=== PATIENT | female | born 1970 | race Caucasian/White ===

== ENCOUNTER → 2018-02-02 16:10 | Outpatient (CLI) | payer OTHER, SELFPAY ==
[2018-02-06 15:05] LABS: HPV Reflexed? NOT INDICATED
== END ==
PROVIDERS: Visit Provider Obstetrics & Gynecology
DX: Z12.4 Encounter for screening for malignant neoplasm of cervix (principal)
CPT/HCPCS: 88175; G0145

== ENCOUNTER 2018-04-17 05:22 | Emergency (ER) | payer OTHER, SELFPAY ==
[2018-04-17 05:24] VITALS: BP 110/85; PULSE 86; RESP 14; TEMP 36.6; O2SAT 96; BMI 33.1
[2018-04-17] MEDS: 0.9% Normal Saline 1,000 ML 1000 ML IV (05:49)
[2018-04-17] MEDS: Ketorolac 30 MG/ML Syringe IV (05:50)
[2018-04-17] MEDS: Ondansetron 4 MG/2 ML Vial IV (05:52)
[2018-04-17 06:01] LABS: Absolute Lymphocyte Count 2.45 X10^3/ul (0.83-4.51); Absolute Neutrophil Count 5.9 X10^3/uL (2.0-7.7); Basophil# 0.02 X10^3/uL; Basophil% 0.2 % (0-1); Eosinophil# 0.08 X10^3/uL; Eosinophils% 0.9 % (0-5); Hematocrit 43.8 % (37-47); Hemoglobin 14.6 g/dl (12.0-15.0); Lymphocyte # 2.45 X10^3/ul (4.0); Mean Corp Hgb Conc 33.3 g/gl (32-36); Mean Corpuscular Hgb 30.6 pg (27.0-32.0); Mean Corpuscular Volume 91.8 fL (81-99); Mean Platelet Vol. 9.5 fl (6.2-12.0); Monocyte% 6.6 % (0-10); Neutrophil # 5.92 X10^3/uL (2.7-7.7); Neutrophil % 65.2 % (47-70); Platelet Count 283 K/mm3 (150-450); RBC Distribution Width CV 12.3 % (11.6-14.6); RBC Distribution Width SD 41.3 fl (35.1-43.9); Red Blood Count 4.77 M/mm3 (4.2-5.4); White Blood Count 9.1 K/mm3 (4.4-11.0)
[2018-04-17 06:04] LABS: POSITIVE COUNT NO; POSITIVE DIFFERENTIAL NO; POSITIVE MORPHOLOGY NO
[2018-04-17 06:16] LABS: Anion Gap 6 (5-15); BUN 12 mg/dL (7-18); BUN/Creat Ratio 14.2 RATIO (10-20); Calcium,Total 8.5 mg/dL (8.5-10.1); Chloride 105 mmol/L (98-107); Creatinine, Serum 0.85 mg/dL (0.55-1.02); EST Glomerular Filtration Rate 77 mL/min (>60); Est Glom Filt Rate - Afr Amer 93 mL/min (>60); Estimated Creatinine Clearance 63.07 ml/min; Glucose 104 mg/dL (74-106); Sodium Level 140 mmol/L (136-145)
[2018-04-17 06:58] LABS: Mucous, Urine 0 SEEN /hpf (<or=2+); Red Blood Cells-Urine 0 SEEN /hpf (0-5)
[2018-04-17 07:00] LABS: Pregnancy, Serum, hCG Quali. NEGATIVE Negative (0-9 Nonpreg)
--- NOTE | 2018-04-17 07:02 | ED.VISSUMM ---
- ER Visit Summary Date of Service: 04/17/18 Chief Complaint: Nausea vomiting and diarrhea History of Present Illness: The patient is a 47 F who presents with nausea vomiting and diarrhea. This began about 5 hours prior to presentation. She reports about 5-6 episodes of nonbloody nonbilious emesis and 5-6 episodes of loose stools. No hematochezia. She does report that she just has not felt well for the past couple of days. No sick contacts with similar symptoms. She complains of some mild diffuse abdominal cramping but no abdominal pain. She also complains of a headache. Review of systems otherwise negative. No fevers chest pain shortness of breath. Physical Examination: Afebrile vitals are normal Patient resting comfortably no distress Moist mucous membranes Heart regular rate and rhythm Lungs are clear Abdomen soft nontender nondistended Alert Test Results: CBC BMP are normal and is negative. Urinalysis pending. Emergency Department Course and Treatment: Since history and examination are most just above a gastroenteritis. However given that she has had a few days of otherwise not feeling well we did obtain some screening laboratory studies which are normal. Patient feels much better after treatment with IV fluids Zofran and Toradol for her headache. Patient will be discharged home with a prescription for Zofran. The oncoming physician will check the urinalysis and if she does have UTI which I have low clinical suspicion for appropriate antibiotics will be prescribed. Treatment Plan: [] Disposition: Discharge Impression: Gastroenteritis This note was generated with [employer] dictation software. It may contain incorrect words, spelling, and punctuation that were not noted in review of the chart prior to signing ED Disposition - Plan for ED Patient: Chief Complaint: Nausea/Vomiting Referrals: Care Physician,No Primary [Primary Care Provider] -
[2018-04-17 07:03] LABS: Color, Urine Yellow (Yellow); Glucose, Dipstick Normal (Normal); Ketone-Dipstick Negative (Negative); Leukocyte Esterase-Dipstick 100 /ul (Negative); Nitrite-Dipstick Negative (Negative); Occult Blood-Urine Negative /ul (Negative); Protein-Dipstick 15 mg/dl (Negative); Urine Bilirubin Dipstick Negative (Negative); Urine Clarity Sl. Cloudy (Clear); Urine Urobilinogen Normal (Normal)
--- NOTE | 2018-04-17 07:06 | ED.DEP ---
ED Disposition - Plan for ED Patient: Chief Complaint: Nausea/Vomiting Instructions: ED Gastroenteritis Viral Prescriptions: Ondansetron [Zofran Odt] 4 mg PO Q8H PRN PRN #4 tab PRN Reason: Nausea Referrals: Care Physician,No Primary [Primary Care Provider] -
[2018-04-17 07:08] LABS: Amorphous Sediment 2+; Bacteria RARE /hpf (None Seen); Squamous Epithelial Cells - UA 0-5 SEEN /hpf (5-10); White Blood Cells 0-5 SEEN /hpf (0-5)
--- NOTE | 2018-04-17 07:42 | ED.VISSUMM ---
- ER Visit Summary Date of Service: 04/17/18 Emergency Department Course and Treatment: The patient was checked out to me with urinalysis pending. This is returned. It shows leukocytes and rare bacteria. She is resting comfortably. Treatment Plan: Patient will be discharged with Zofran. Instructed to follow-up with her primary care physician in 1-2 days if not improving. Return to the emergency department for any worsening symptoms. Disposition: To home in improved and stable condition. Impression: 1. Vomiting/diarrhea. This note was generated with [employer] dictation software. It may contain incorrect words, spelling, and punctuation that were not noted in review of the chart prior to signing ED Disposition - Plan for ED Patient: Chief Complaint: Nausea/Vomiting Instructions: ED Gastroenteritis Viral Prescriptions: Ondansetron [Zofran Odt] 4 mg PO Q8H PRN PRN #4 tab PRN Reason: Nausea Referrals: Care Physician,No Primary [Primary Care Provider] -
[2018-04-17 07:51] VITALS: BP 112/76; PULSE 85; RESP 16; O2SAT 98
== END 2018-04-17 07:52 | disposition home or self-care (01) ==
PROVIDERS: Emergency Provider Emergency Medicine
DX: K52.9 Noninfective gastroenteritis and colitis, unspecified (principal); R51 Headache
CPT/HCPCS: 80048; 81001; 84703; 85025; 96361; 96374; 96375; 99283; J7030; A4216

== ENCOUNTER → 2018-07-27 07:05 | Outpatient (CLI) | payer OTHER, SELFPAY | PROVIDERS: Visit Provider Obstetrics & Gynecology | DX: Z12.31 Encounter for screening mammogram for malignant neoplasm of breast (principal) | CPT/HCPCS: 77063; 77067 ==

== ENCOUNTER → 2019-07-28 07:19 | Outpatient (CLI) | payer BC, SELFPAY ==
--- NOTE | 2019-07-28 07:21 | BI_ITS ---
MAMMOGRAPHY - BILATERAL SCREENING REASON FOR EXAM: Female, 48 years old. Routine annual screening examination. PERTINENT HISTORY: Non-contributory. TECHNIQUE: Digital bilateral breast alfred (3D mammographic acquisition) in the CC and MLO projections. 2-D mediolateral oblique (MLO) and craniocaudad (CC) views of both breasts were obtained. CAD: Full Field Digital Mammography with Computer Added Detection was performed. COMPARISON: Comparison is made with prior study July 27, 2018 and June 29, 2017. FINDINGS: Breast Composition: There are scattered areas of fibroglandular density. There are no dominant masses or suspicious calcifications. No other significant abnormalities are identified. There has been no significant change since the prior study. BI/SCREEN MAMM (CAD) W/ALFRED BILAT IMPRESSION: Stable bilateral screening mammogram. Yearly follow-up mammogram recommended. (A) ASSESSMENT CATEGORY: BIRADS Category 1: Negative. A letter regarding these results will be sent to the patient by the facility within 30 days. Approximately 10% of breast cancers are not detected by mammography. A normal mammogram should not delay biopsy of a clinically suspicious abnormality. [id number] Electronically Signed: David Mesa, at 8:43 EDT , Service support ,
== END ==
PROVIDERS: Referring Provider Obstetrics & Gynecology; Visit Provider Obstetrics & Gynecology
DX: Z12.31 Encounter for screening mammogram for malignant neoplasm of breast (principal)
CPT/HCPCS: 77063; 77067

== ENCOUNTER → 2020-05-13 16:17 | Outpatient (CLI) | payer BC, SELFPAY ==
[2020-05-13 18:15] LABS: Thyroid Stim Hormone (TSH) 2.27 uIU/mL (0.358-3.74)
[2020-05-20 05:31] LABS: HPV Reflexed? NOT INDICATED
== END ==
PROVIDERS: Visit Provider Obstetrics & Gynecology
DX: Z12.4 Encounter for screening for malignant neoplasm of cervix (principal); N92.6 Irregular menstruation, unspecified
CPT/HCPCS: 36415; 84443; 88175; G0145

== ENCOUNTER 2020-07-29 06:07 | Day surgery (SDC) | payer BC, SELFPAY ==
[2020-07-24 12:03] LABS: Prothrombin Time (Protime)PT. 12.4 SECONDS (11.7-14.9)
[2020-07-24 12:04] LABS: Partial Thromboplast Time 28.1 Seconds (24.1-36.2)
[2020-07-24 12:08] LABS: Hematocrit 44.9 % (37-47); Hemoglobin 14.6 g/dL (12.0-15.0); Mean Corp Hgb Conc 32.5 g/dL (32-36); Mean Corpuscular Hgb 30.6 pg (27.0-32.0); Mean Corpuscular Volume 94.1 fL (81-99); Mean Platelet Vol. 10.2 fl (6.2-12.0); Platelet Count 348 K/mm3 (150-450); RBC Distribution Width CV 12.3 % (11.6-14.6); RBC Distribution Width SD 42.1 fl (35.1-43.9); Red Blood Count 4.77 M/mm3 (4.2-5.4); White Blood Count 9.1 K/mm3 (4.4-11.0)
[2020-07-24 12:22] LABS: Creatinine, Serum 0.84 mg/dL (0.55-1.02); EST Glomerular Filtration Rate 77 mL/min (>60); Est Glom Filt Rate - Afr Amer 94 mL/min (>60)
--- NOTE | 2020-07-26 10:39 | PCM.HP.BLA ---
History and Physical Date of Admission: 07/29/20 Surgical History and Physical Jasmin Rosas, a 49 year old female 2 0 2 0 2, presents for [facility]BS on June at 7:30. -- Menorrhagia, Submucous Fibroids -- Heavy bleeding with pressure feeling in low abdomen area. Heavy menses which began years ago. Jasmin claims it started gradually It occurs with every cycle. Severity is severe and worsening; Associated signs and symptoms are extremely heavy menses for several days monthly and then often has spotting and bleeding 2-3 weeks later. Additional comments are: U/S shows multiple submucous fibroids--UTERUS: 8.1 x 4.9 x 3.4cm and appears heterogenous. 2 submucousal fibroids seen (anterior) 2.4 x 2.3 x 1.9cm and 1.4 x 1.2 x 1.2cm; recent TSH normal. MEDICATIONS HISTORY: Patient is also takin. multivitamin tablet, chewable ALLERGIES: Pcn, Hallucinations, Seafood, Gluten free, Gastric upset, Penicillins, Hallucinations, Shellfish Derived, Constriction in throat (feeling of choking), Gluten and Intolerance-diarrhea Infections - Chicken pox Illnesses - Celiac Disease(Gluten Intolerate) Accidents - no injuries of consequence Hospitalizations - Childbirth and see surgery Review of Systems: GENERAL - Denies fever, or chills SKIN - Denies skin changes EYES - Denies visual changes EARS - Denies difficulty hearing NOSE - Denies nasal congestion or bleeding MOUTH - Denies sore throat or difficulty swallowing NECK - Denies pain or swelling RESPIRATORY - Denies shortness of breath or wheezing CARDIOVASCULAR - Denies palpitations or chest pain GASTROINTESTINAL - Denies nausea, vomiting, diarrhea, constipation GENITOURINARY - Denies dysuria, frequency of urination, incontinence of urine MUSCULOSKELETAL - Denies joint or muscle pain NEUROLOGICAL - Denies localized numbness or weakness PSYCHIATRIC - Denies depression or anxiety ENDOCRINE - Denies heat or cold intolerance, weight loss or gain HEMATO-IMMUNOLOGIC - Denies excessive bleeding with cuts SOCIAL HISTORY: Alcohol Use - drinks occasionally Smoking - denies smoking Diet - Gluten Free Diet Lifestyle - high stress lifestyle and Exercise - very active, walking Seat Belt Use - always Employer - [employer] Job Description - OFFICE [employer] Illicit Drug Use - None Sexual Activity - Residence - owns a home and lives with Place of - [place] Hours Worked - 47 Spouse-Sig Other Name - ZAMZAM ROSAS Spouse-Sig Other Occupation - Heavy Equipment Sales Associate Children Name(s) - ANASTACIO, GARRICK Control - Prior Tubal FAMILY HISTORY: Family history of DM I and Heart Disease. Mother: Hypertension. Father: Hypertension. PAST PREGNANCIES: Total Pregnancies - 4; Full Term Pregnancies - 2; Premature - 0; Abortions, Induced - 0; Abortions, Spontaneous - 2; Ectopics - 0; Multiple Births - 0; Living Children - 2 SURGICAL HISTORY: 1. , 1996 2. 11/14/2002 Tubal ; Zamzam Glass M.D. - Elective 3. NASAL SURG . 01/16/2011 [facility] ; Zamzam Glass M.D. PHYSICAL EXAM BP- 128/78 Sitting, Right arm, regular cuff Weight- 178.83191 lbs Height- 60.75 inch BMI:33.98 CONSTITUTIONAL - NAD, well nourished, and well developed SKIN - No rash, lesions, or ulcers HEENT - Normocephalic, PERRLA, EOMI NECK - No nodes, no nuchal rigidity and thyroid normal size and texture LYMPH NODES - Palpation of lymph nodes in neck and groins within normal limits LUNGS - CTA x2 without wheezes, crackles or rales CARDIAC - Regular rate and rhythm without rubs, murmurs, or gallops BREAST - No dominant masses, no tenderness, no axillary adenopathy, no nipple discharge, no skin changes ABDOMEN - Without hepatosplenomegaly, distention, masses, rebound, or guarding; normal bowel sounds; no hernias EXTREMITIES - No edema or calf tenderness NEUROLOGICAL - Cranial nerves II-XII grossly intact PSYCHIATRIC - A and O to time, place, person, mood and affect External Genital Vagina - non-tender without lesions Urethra/Urethral Meatus - non-tender Bladder - non-tender Vagina - vaginal wang are pink and moist without loss of rugae and no evidence of atropy Cervix - without cervical motion tenderness and has normal size and features without evident lesions Uterus - 5-6 cm in size, mobile and nontender Adnexa - clear without masses or tenderness ASSESSMENT/PLAN: 1. Premenopause Menorrhagia and Submucous Leiomyoma Very symptomatic and bothersome. Discussed options for treatment including OCPs, ablation (both not optimal), expectant management, or proceeding with hysterectomy. Pt desires proceeding with hysterectomy. Plan RAVH/BS as pt had prior . Discussed RBAs and all questions answered.
[2020-07-29] VITALS (10 sets, daily range): BP systolic 93–136; BP diastolic 50–85; PULSE 63–95; RESP 16–18; TEMP 36.1–37; O2SAT 94–100; BMI 33.1
--- NOTE | 2020-07-29 | HYST_PTH ---
PATIENT: INNA BE LOC: [facility] [place] U#:[id number] AGE/SX: 49/F ROOM: RE07/29/[address]: Dr. Lee Glass MD : 1970 BED: DIS: 07/30/2020 SPEC #: [id number] RECD: 07/29/20 10:57 STATUS: TERESE NEIL #: [id number] KRISTIE: 07/29/20 00:[address]: Lee Glass DEPT: SURGICAL PATHOLOGY RECD BY: Ugo Verdugo ENTERED: 07/29/20 10:57 SP TYPE: HYSTERECT OT DR: No Primary Care Phys Tissues: Uterus, NOS Procedures: Surgery Specimen Level V HEADER OPERATION: Lap robotic hysterectomy, bilateral salpingectomy PRE-OP DIAGNOSIS: Premenopause menorrhagia and submucous leiomyoma TISSUE SUBMITTED: Uterus, bilateral fallopian tubes MICROSCOPIC DIAGNOSIS Uterus and bilateral fallopian tubes, hysterectomy and bilateral salpingectomy: Cervix - mild chronic inflammation. Endometrium - secretory endometrium. Myometrium - intramural and submucosal leiomyomas (largest measuring 1.3 cm in greatest dimension). - Adenomyosis. Right fallopian tube - no pathologic diagnosis. Left fallopian tube - no pathologic diagnosis. Bilateral paratubal cysts. 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 See comment. SJ:rg 07/30/20 COMMENT Immunohistochemistry ([id number]) supports the above diagnosis. Case has been reviewed in consultation with Dr. Rios who concurs with the above diagnosis. IDC:AM MICROSCOPIC DESCRIPTION Slides are reviewed. GROSS DESCRIPTION Received in fixative is one container labeled with the patient's name and designated uterus. The specimen consists of a uterus with attached cervix measuring 8.5 x 6 x 4 cm and weighs 95 gm. The ectocervix is unremarkable. The cervical os is oval in contour. The attached right fallopian tube measures 5 cm in length and 0.5 cm diameter. A paratubal cyst measures 1.2 cm and contains clear fluid. The left fallopian tube is similar in appearance and is detached and measures 5.5 cm in length and 0.4 cm in average diameter. The endocervical canal measures 3.3 cm in length and is grossly unremarkable. The triangular endometrial cavity measures 4 x 3.5 cm. The velvety, light boyle endometrium measures up to 0.2 cm in thickness. The anterior endometrial surface contains a smooth, glistening, pink-boyle polyp measuring 1.2 x 0.8 cm. The myometrium measures 2.2 cm in average thickness and is grossly consistent with adenomyosis. The myometrium also contains two rubbery white nodules resembling leiomyomas ranging in size from 0.5 and 1.3 cm. Crime Scene Photographer sections are submitted in ten cassettes as follows: 1 - anterior cervix, 2 - posterior cervix, 3 - endometrial polyp, 4 & 5 - anterior endometrium (cassette 4 contains small leiomyoma), 6 & 7 - posterior myometrium, 8 - posterior myometrial mass, 9??right fallopian tube and paratubal cyst, 10 - left fallopian tube. / AM:michaela 07/29/20 TC:1 CPT: 81436
--- NOTE | 2020-07-29 | IMM_PTH ---
PATIENT: INNA BE LOC: [facility] [place] U#:[id number] AGE/SX: 49/F ROOM: RE07/29/[address]: Dr. Lee Glass MD : 1970 BED: DIS: 07/30/2020 SPEC #: [id number] RECD: 07/30/20 14:18 STATUS: TERESE REQ #: [id number] KRISTIE: 07/29/20 00:[address]: Lee Glass DEPT: IMMUNOHISTOCHEMISTRY RECD BY: So Phillip ENTERED: 07/30/20 14:19 SP TYPE: IMMUNO OTHR DR: No Primary Care Phys Tissues: Uterus, NOS Procedures: MART1 (add) Vimentin (initial) S-100 (add) PHYSICIAN & INSTITUTION [place] [address] SPECIMEN INFORMATION: Tissue Source: Uterus Clinical Info: Premenopause menorrhagia, submucous leiomyoma Specimen Number: [id number] #10 CPT code: 21999, 49681 x2 METHODOLOGY: Deparaffinized sections of prefer/formalin-fixed tissue or PAP/DQ stained slides are incubated with monoclonal/polyclonal antibodies/oligonucleotide probes. Localization is made via biotin free immunoperoxidase method. Appropriate controls are performed and reacted as expected. Results on target cell population are indicated in the following table: RESULTS: ANTIBODY / CLONE RESULT Block 10 Vimentin (V9) positive S-100 (4C4.9) negative MART-1 (A-103) negative These tests were developed and their performance characteristics determined by [facility]. They may not have been cleared or approved by the U.S. Food and Drug Administration. The FDA has determined that such clearance or approval is not necessary. The above immunohistochemical/dualISH markers are ordered and reviewed by the Pathologist. 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 SJ:michaela 07/31/20 Case has been reviewed in consultation with Dr. Rios who concurs with the above diagnosis. IDC:AM
[2020-07-29] MEDS: Lactated Ringers 1,000 ML 100 ML IV ×2 (07:04→07:08)
--- NOTE | 2020-07-29 07:47 | PCM.DC.VHY ---
Discharge Diet: No Restrictions Discharge Activity: Return to Normal Activity, May Not Drive - while taking narcotic pain medications., May Shower, May Take a Tub Bath May resume sexual activity in: 6-8 weeks Call your doctor if your incision/area has: Continuous Slow Oozing, Sudden Increased Bleeding, Increased Pain/ Swelling, Increased Redness, Foul Smelling Discharge Call your doctor if you observe: Fever of 101 or Higher, Inability to urinate, Inability to have a bowel movement, Using more than one pad per hour Allergies/Adverse Reactions: Allergies bee venom protein (honey bee) Allergy (Verified 07/29/20 06:43) Anaphylaxis gluten Allergy (Verified 07/29/20 06:43) Diarrhea Penicillins Allergy (Verified 07/29/20 06:43) Other HALLUCINATIONS shellfish derived Allergy (Verified 07/29/20 06:43) Food Allergy Medications to take at Discharge Ascorbic Acid [Vitamin C] 1,000 mg PO DAILY 07/18/20 Cholecalciferol (VIT D3) [Vitamin D] 1,000 unit PO DAILY 07/18/20 Cyanocobalamin (Vitamin B-12) [Vitamin B12] 2,500 mcg PO DAILY 07/18/20 Loratadine [Claritin] 10 mg PO DAILY 07/18/20 Multivitamin [Daily Multiple Vitamin] 1 ea PO DAILY 07/18/20 Prasterone (Dhea) [Dhea] 25 mg PO DAILY 07/18/20 Pyridoxine HCl [Vitamin B-6] 100 mg PO DAILY 07/18/20 Docusate Sodium [Colace] 100 mg PO BID 14 Days #60 cap 07/29/20 Oxycodone [Oxyir] 5 mg PO Q6H PRN PRN 7 Days #20 tab 07/29/20 The following prescriptions were given: Docusate Sodium [Colace] 100 mg PO BID 14 Days #60 cap Transmission Status: Sent to [facility] Oxycodone [Oxyir] 5 mg PO Q6H PRN PRN 7 Days #20 tab PRN Reason: Pain Score 4-10/10 Transmission Status: Received by [facility] Primary Care Physician: Care Physician,No Primary [Primary Care Provider] - Test Results: Test results from this visit will be discussed in further detail at your follow-up appointment, if applicable. Please Follow Up With: Lee Glass MD When: 2-3 weeks
--- NOTE | 2020-07-29 07:49 | PCM.OPRPT ---
<Chandu Cerrato - Last Filed: 07/29/20 07:49> Report of Operation Date of Procedure: 07/29/20 Pre-Operative Diagnosis: Menorrhagia, submucousal fibroids Post-Operative Diagnosis: Menorrhagia, submucousal fibroids Surgery/Procedure Performed:: Robotic assisted vaginal hysterectomy, bilateral salpingectomy Type of Anesthesia:: General - Admit VTE Documentation VTE Mechan Device Prophylaxis: SCD's VTE Pharm Prophylaxis ordered?: No <Lee Glass - Last Filed: 07/29/20 09:53> Report of Operation Description of Surgical Findings:: 10 cm uterus with normal-appearing fallopian tubes and ovaries. Evidence of prior tubal ligation with Filshie clips. Dense adhesions of bladder to anterior uterus from prior sections. Adhesions of omentum to anterior abdominal wall. painter and paperhanger apprentice: Chandu Cerrato painter and paperhanger apprentice: Ryley Dubon Type of Anesthesia:: General - Endotracheal Anesthesiologist: Noah Mullins Specimen's removed: Uterus and bilateral fallopian tubes Drains: Saldaña to straight drain Estimated Blood Loss (mL): Minimal Fluids Replaced: Crystalloid Description of Procedure: Surgeon: Lee Glass MD, FACOG Indication: This is a 49 year old patient who has been having problems with submucous fibroids and menorrhagia. Conservative measures have not been helpful. The patient has been counseled regarding the risks, benefits and alternatives of this procedure including the possibility of bleeding, infection, and injury to surrounding structures such as bowel bladder and all questions were answered. She understands that if BSO is needed that she will need to be on HRT for an indefinite period of time. Procedure: Pt taken to the operating room where, after induction of general anesthesia, the patient was prepped and draped in the usual sterile fashion and placed on a non-slip Huggy-u-vac device. Trendelenburg test was satisfactory. Bladder was drained of urine with a Saldaña catheter which was left in place. Anterior cervix grasped and cervix was dilated to about 3-4 mm. Uterus sounded to 9 cms. 0-Vicryl suture was placed at the 3:00 and 9:00 position of the cervix. A medium Advincula Photogrammetric Surveyor Uterine Manipulator was then placed in the uterus and attention was turned to the laparoscopic portion of the procedure. Ropivocaine 0.5% was injected approximately 2-3 cm superior to the umbilicus and an 8 mm robotic left side port was introduced directly with intraperitoneal placement confirmed with CO2 insufflation. 8 mm robotic camera and right side ports were introduced under direct visualization approximately with side ports introduced 11 cm lateral and 2 cm inferior to the umbilical port. A 5 mm left upper quadrant port was introduced and airseal insufflation with CO2 was started. The above findings were noted. Robot was docked without difficulty and attention turned to the robotic portion of the procedure. Approximately 20 cc of Ropivicaine was used. The omental adhesions were taken down with cautery and sharp dissection. Bilateral mesosalpinx were ligated with 35 ballard bipolar coagulation to the level of the round ligament. The posterior aspect of the cervix was identified and then opened for about 1 cm using 25 watt monopolar cautery identifying the uterine manipulating device which had been placed vaginally. Bladder flap was opened and divided to the level of the round ligaments using monopolar cautery. Progressive bites were then ligated on each side of the cervix with 35 ballard bipolar cautery to the uterine arteries. The anterior vaginal mucosa was entered and cervix circumscribed with monopolar cautery. Uterus and attached tubes were removed through the vagina. Vaginal cuff was closed first with 0-Vicryl Robinson stitches placed at each angle followed by closure of the mid-cuff with 0-Monocryl V-lock suture in two layers. Pelvis was copiously irrigated with saline and the right and left ureters were noted to peristalse. Robot was undocked and trocars were removed with as much gas as possible. Incisions were closed with 4-0 Monocryl subcuticular sutures and incisions covered with steri-strips. The patient tolerated the procedure well and was taken to the recovery room in satisfactory condition. Sponge, instruments and needle counts were all correct. There were no apparent complications of the surgery. Cefotan 2 gms IV was given prior to the procedure. Estimated Blood Loss: Minimal Specimen to Pathology: Uterus and bilateral fallopian tubes Grafts/Implants Used: None - Complications None - Admit VTE Documentation VTE Present on Admission: Yes VTE Mechan Device Prophylaxis: SCD's VTE Pharm Prophylaxis ordered?: Yes
[2020-07-29] MEDS: Ropivacaine 0.5% 30 ML Vial (10:00)
[2020-07-29] MEDS: Ketorolac 30 MG/ML Syringe IV ×3 (11:03→23:10)
[2020-07-29] MEDS: Dextrose 5%-Lactated Ringers 1,000 ML 125 ML IV (13:27)
[2020-07-29] MEDS: Enoxaparin 30 MG/0.3 ML Syringe SC (17:35)
[2020-07-29] MEDS: oxyCODONE 5 MG Tablet PO (19:42)
[2020-07-29] MEDS: Docusate Sodium 100 MG Capsule PO (23:40)
[2020-07-29] MEDS: 0.9% Saline Lock 10 ML Syringe IV (23:40)
[2020-07-30 03:54] VITALS: BP 96/57; PULSE 91; RESP 16; TEMP 36.3; O2SAT 97
[2020-07-30] MEDS: 0.9% Saline Lock 10 ML Syringe IV ×2 (03:55→09:43)
[2020-07-30] MEDS: Ketorolac 30 MG/ML Syringe IV ×2 (03:55→09:32)
[2020-07-30 06:05] LABS: Hematocrit 38.4 % (37-47); Hemoglobin 12.3 g/dL (12.0-15.0); Mean Corpuscular Hgb 30.2 pg (27.0-32.0); Mean Corpuscular Volume 94.3 fL (81-99); Mean Platelet Vol. 9.9 fl (6.2-12.0); Platelet Count 312 K/mm3 (150-450); RBC Distribution Width CV 12.7 % (11.6-14.6); RBC Distribution Width SD 43.9 fl (35.1-43.9); Red Blood Count 4.07 M/mm3 (4.2-5.4); White Blood Count 17.7 K/mm3 (4.4-11.0)
[2020-07-30 06:24] LABS: Creatinine, Serum 0.88 mg/dL (0.55-1.02); EST Glomerular Filtration Rate 73 mL/min (>60); Est Glom Filt Rate - Afr Amer 88 mL/min (>60); Estimated Creatinine Clearance 59.64 ml/min
[2020-07-30 07:33] VITALS: O2SAT 94
--- NOTE | 2020-07-30 08:40 | PN.OBGYN_ITS ---
Subjective: Patient without complaints. Tolerating diet well. Positive flatus. Saldaña catheter is out but has not voided on own yet. Minimal vaginal bleeding reported. Objective: Wounds are clean, dry, intact. Good urine output. Hemoglobin and creatinine okay. - Physical Exam Vitals/I&O's: Vital Signs Temp Pulse Resp BP Pulse Ox 97.4 F L 91 16 96/57 L 94 07/30/20 03:54 07/30/20 03:54 07/30/20 03:54 07/30/20 03:54 07/30/20 07:33 Oxygen Flow Rate (L/min) 3 Oxygen Delivery Method Room Air Weight: 179 lb 14.355 oz Body Mass Index (BMI) 33.1 Intake and Output for Last 24 Hours 07/28/20 07/29/20 07/30/20 23:59 23:59 23:59 Intake Total 4546.67 / 4546.67 400 / 400 Output Total 2575 / 2575 750 / 750 Balance 1971.67 / 1971.67 -350 / -350 Laboratory Results 07/30/20 05:20: WBC 17.7 H, RBC 4.07 L, Hgb 12.3, Hct 38.4, MCV 94.3, MCH 30.2, MCHC 32.0, RDW Std Deviation 43.9, RDW Coeff of Alcides 12.7, Plt Count 312, MPV 9.9 07/30/20 05:20: Creatinine 0.88, Estim Creat Clear Calc 59.64, Est GFR (MDRD) Af Amer 88, Est GFR (MDRD) Non-Af 73 Current Medications Acetaminophen (Tylenol) 1,000 mg PO Q8H PRN PRN PRN Reason: Pain Score 1-3/10 or Fever Docusate Sodium (Colace) 100 mg PO BID [facility] Last Admin: 07/29/20 23:40 Dose: 100 mg Documented by: Hydromorphone HCl (Dilaudid Inj) 0.5 mg IV Q3H PRN PRN PRN Reason: Pain Score 4-10/10 Sodium Chloride () 250 mls @ 15 mls/hr IV .[id number] PRN PRN Reason: Saline Flush Sodium Chloride () 250 mls @ 15 mls/hr IV .[id number] PRN PRN Reason: Additional IVPB Infusion Ketorolac Tromethamine (Toradol (Bkc)) 30 mg IV Q6H [facility] Stop: 08/03/20 10:24 Last Admin: 07/30/20 03:55 Dose: 30 mg Documented by: Ondansetron HCl (Zofran) 4 mg IV Q4H PRN PRN PRN Reason: NAUSEA Oxycodone HCl (Oxyir) 5 mg PO Q4H PRN PRN PRN Reason: Pain Score 4-10/10 Last Admin: 07/29/20 19:42 Dose: 5 mg Documented by: Simethicone (Mylicon) 80 mg PO [facility] Last Admin: 07/29/20 23:40 Dose: 80 mg Documented by: Sodium Chloride () 10 - 40 ml IV UD PRN PRN Reason: SALINE FLUSH Last Admin: 07/30/20 03:55 Dose: 10 ml Documented by: Medical Necessity - Tobacco Use Smoking Status: Never smoker Tobacco Use: Non-smoker Assessment/Plan Doing well postoperative day #1 status post robotic assisted vaginal hysterectomy and bilateral salpingectomy. Will release to home with routine instructions.
[2020-07-30] MEDS: Docusate Sodium 100 MG Capsule PO (09:31)
[2020-07-30 09:54] VITALS: BP 108/70; PULSE 74; RESP 16; TEMP 36.6; O2SAT 99
== END 2020-07-30 11:30 | disposition home or self-care (01) ==
LOC: SDC 06:07 → AC 06:07 → MS3 07:48
PROVIDERS: Anesthesiology; Obstetrics & Gynecology; Referring Provider Obstetrics & Gynecology; Visit Provider Obstetrics & Gynecology
PROC: 0UT90ZZ Resection of Uterus, Open Approach (ICD-10-PCS; CPT 58571; principal; 2020-07-29 07:10)
DX: D25.0 Submucous leiomyoma of uterus (principal); N80.0 Endometriosis of uterus; N83.8 Other noninflammatory disorders of ovary, fallopian tube and broad ligament; Z79.899 Other long term (current) drug therapy
CPT/HCPCS: 00944; 58571; S2900; 36415; 82565; 85027; 85610; 85730; 86850; 86900; 86901; 87635; 88307; 88341; 88342; 94799; 99251; C9803; J7120; A4216; G0463; J2405; U0003

== ENCOUNTER → 2020-08-19 07:39 | Outpatient (CLI) | payer BC, SELFPAY ==
[2020-07-29 11:24] VITALS: BMI 33.1
--- NOTE | 2020-08-19 07:41 | BI_ITS ---
MAMMOGRAPHY - BILATERAL SCREENING REASON FOR EXAM: Female, 49 years old. Routine annual screening examination. PERTINENT HISTORY: Non-contributory. TECHNIQUE: Digital bilateral breast alfred (3D mammographic acquisition) in the CC and MLO projections. 2-D mediolateral oblique (MLO) and craniocaudad (CC) views of both breasts were obtained. CAD: Full Field Digital Mammography with Computer Added Detection was performed. COMPARISON: Comparison is made with prior study dated 07/28/2019 and 07/27/2018. FINDINGS: Breast Composition: There are scattered areas of fibroglandular density. There are no dominant masses or suspicious calcifications. Stable benign appearing bilateral axillary lymph nodes. No other significant abnormalities are identified. There has been no significant change since the prior study. BI/SCREEN MAMM (CAD) W/ALFRED BILAT IMPRESSION: Stable bilateral screening mammogram. Yearly follow-up mammogram recommended. (A) ASSESSMENT CATEGORY: BIRADS Category 2: Benign. A letter regarding these results will be sent to the patient by the facility within 30 days. Approximately 10% of breast cancers are not detected by mammography. A normal mammogram should not delay biopsy of a clinically suspicious abnormality. [id number] Electronically Signed: David Mesa, at 9:17 EDT , Service support ,
== END ==
PROVIDERS: Referring Provider Obstetrics & Gynecology; Visit Provider Obstetrics & Gynecology
DX: Z12.31 Encounter for screening mammogram for malignant neoplasm of breast (principal)
CPT/HCPCS: 77063; 77067

== ENCOUNTER → 2021-08-20 07:40 | Outpatient (CLI) | payer BC, SELFPAY ==
--- NOTE | 2021-08-20 07:43 | BI_ITS ---
MAMMOGRAPHY - BILATERAL SCREENING REASON FOR EXAM: Female, 50 years old. Routine annual screening examination. PERTINENT HISTORY: Non-contributory. TECHNIQUE: Digital bilateral breast alfred (3D mammographic acquisition) in the CC and MLO projections. 2-D mediolateral oblique (MLO) and craniocaudad (CC) views of both breasts were obtained. CAD: Full Field Digital Mammography with Computer Added Detection was performed. COMPARISON: Comparison is made with prior study 08/19/2020 and 07/28/2019. FINDINGS: Breast Composition: There are scattered areas of fibroglandular density. There are no dominant masses or suspicious calcifications. No other significant abnormalities are identified. There has been no significant change since the prior study. BI/SCRN MAMM (CAD)W/ALFRED BILAT IMPRESSION: Stable bilateral screening mammogram. Yearly follow-up mammogram recommended. (A) ASSESSMENT CATEGORY: BIRADS Category 1: Negative. A letter regarding these results will be sent to the patient by the facility within 30 days. Approximately 10% of breast cancers are not detected by mammography. A normal mammogram should not delay biopsy of a clinically suspicious abnormality. [id number] Electronically Signed: David Mesa MD at 8:41 EDT , Service support ,
== END ==
PROVIDERS: Referring Provider Obstetrics & Gynecology; Visit Provider Obstetrics & Gynecology
DX: Z12.31 Encounter for screening mammogram for malignant neoplasm of breast (principal)
CPT/HCPCS: 77063; 77067

== ENCOUNTER 2022-01-02 10:25 | Outpatient (CLI) | payer BC, SELFPAY ==
[2022-01-02 12:18] LABS: Absolute Lymphocyte Count 2.65 X10^3/uL (0.83-4.51); Absolute Neutrophil Count 5.7 X10^3/uL (2.0-7.7); Basophil# 0.07 X10^3/uL; Basophil% 0.8 % (0-1); Eosinophil# 0.13 X10^3/uL; Eosinophils% 1.4 % (0-5); Hematocrit 45.4 % (37-47); Hemoglobin 15.1 g/dL (12.0-15.0); Lymphocyte # 2.65 X10^3/ul (0.83-4.51); Lymphocyte % 28.5 % (19-41); Mean Corp Hgb Conc 33.3 g/dL (32-36); Mean Corpuscular Hgb 31.1 pg (27.0-32.0); Mean Corpuscular Volume 93.6 fL (81-99); Mean Platelet Vol. 10.3 fl (6.2-12.0); Monocyte# 0.75 X10^3/uL; Monocyte% 8.1 % (0-10); NRBC Flagged by Analyzer 0 % (0-5); Neutrophil # 5.69 X10^3/uL (2.7-7.7); Platelet Count 356 K/mm3 (150-450); RBC Distribution Width CV 12.3 % (11.6-14.6); RBC Distribution Width SD 42.5 fl (35.1-43.9); Red Blood Count 4.85 M/mm3 (4.2-5.4); White Blood Count 9.3 K/mm3 (4.4-11.0)
[2022-01-02 12:50] LABS: ALB/GLOB Ratio 0.8 RATIO (0.9-2.4); AST(SGOT) 15 U/L (15-37); Alanine Aminotransfer ALT/SGPT 25 U/L (13-56); Albumin, Serum 3.4 g/dL (3.2-5.0); Alkaline Phosphatase 86 U/L (45-117); Anion Gap 5 (5-15); BUN 12 mg/dL (7-18); BUN/Creat Ratio 13.8 RATIO (10-20); Calcium,Total 8.9 mg/dL (8.5-10.1); Chloride 104 mmol/L (98-107); Cholesterol 218 mg/dL (200); Creatinine, Serum 0.87 mg/dL (0.55-1.02); EST Glomerular Filtration Rate 74 mL/min (>60); Est Glom Filt Rate - Afr Amer 89 mL/min (>60); Globulin 4.2 g/dL (2.2-4.2); Glucose 95 mg/dL (74-106); High Density Lipoprotein 47 mg/dL; Potassium 3.8 mmol/L (3.5-5.1); Protein, Total 7.6 g/dL (6.4-8.2); Sodium Level 136 mmol/L (136-145); Thyroid Stim Hormone (TSH) 2.51 uIU/mL (0.358-3.74); Triglycerides 181 mg/dL; Very Low Density Lipoprotein 36 mg/dL (5-40)
[2022-01-02 13:00] LABS: Vitamin D,25 Hydroxy 73.5 ng/mL
[2022-01-04 15:07] LABS: Endomysial Antibody IgA Negative (Negative)
[2022-01-04 22:18] LABS: Immunoglobulin A 495 mg/dL (87-352); t-Transglutaminase IgA <2 U/mL (0-3)
== END 2022-01-02 23:59 | disposition short-term general hospital (02) ==
LOC: MFPLAB 10:26
PROVIDERS: PCP Family Medicine; Referring Provider Family Medicine; Visit Provider Family Medicine
DX: E78.5 Hyperlipidemia, unspecified (principal); E55.9 Vitamin D deficiency, unspecified; K90.41 Non-celiac gluten sensitivity
CPT/HCPCS: 36415; 80053; 80061; 82306; 82784; 83516; 84443; 85025; 86255

== ENCOUNTER → 2022-04-09 | Outpatient (CLI) | payer BC, SELFPAY ==
--- NOTE | 2022-04-09 06:27 | ECHOD_ITS ---
Reason For Study: CHEST PAIN Procedure This was a 2D Doppler, Color Flow transthoracic echocardiogram. The exam was of adequate technical quality. Exam performed in department. Left Ventricle Normal LV size. Left ventricular systolic function is normal. The estimated ejection fraction is 65 %. No evidence for diastolic dysfunction. No regional wall motion abnormalities noted. Right Ventricle Normal RV size. Normal systolic function. Atria Normal left atrium. Normal right atrium. No doppler evidence for ASD. Mitral Valve There is no mitral annular calcification. Mild diffuse mitral valve thickening. Equivocal mitral valve prolapse. Mild (1+) mitral valve insufficiency. Tricuspid Valve Normal tricuspid valve. Trivial tricuspid valve insufficiency. Right ventricular systolic pressure estimated to be 26 mmHg. Aortic Valve Trisinus/trileaflet aortic valve. Normal aortic valve. Pulmonic Valve The pulmonic valve is not well visualized. Trivial pulmonic valve insufficiency. Great Vessels Normal sized aortic root. Pericardium/Pleural No pericardial effusion. MMode/2D Measurements & Calculations LVIDd: 4.1 cm IVSd: 0.86 cm Ao root diam: 3.2 cm LVIDs: 2.8 cm LVPWd: 0.96 cm RVDd: 3.0 cm FS: 32.1 % LAV(MOD-bp): 34.8 ml LVAd ap4: 27.2 cm2 SV(MOD-sp4): 52.0 ml LAV(MOD-bp) Indexed: 19.5 ml/m2 LVLd ap4: 7.2 cm LAV(MOD-sp2): 30.1 ml EDV(MOD-sp4): 85.4 ml LAV(MOD-sp4): 35.4 ml EDV(sp4-el): 86.9 ml LVAs ap4: 14.8 cm2 LVLs ap4: 5.8 cm ESV(MOD-sp4): 33.4 ml ESV(sp4-el): 32.1 ml EF(MOD-sp4): 60.9 % EF(sp4-el): 63.1 % SV(sp4-el): 54.8 ml LA A4 area: 14.6 cm2 LA dimension(2D): 3.2 cm RA A4 area: 12.3 cm2 Time Measurements MV dec time: 0.20 sec Doppler Measurements & Calculations MV E max alvino: 83.1 cm/sec Lat Peak E' Alvino: 11.3 cm/sec Med Peak E' Alvino: 9.4 cm/sec MV A max alvino: 67.5 cm/sec E/E' lat: 7.3 E/E' med: 8.8 MV E/A: 1.2 Ao V2 max: 113.8 cm/sec LV V1 max: 95.6 cm/sec PA V2 max: 79.8 cm/sec Ao max P.2 mmHg LV V1 max P.7 mmHg TR max alvino: 239.3 cm/sec TR max P.0 mmHg ECHO/Echo Complete Interpretation Summary Left ventricular systolic function is normal. The estimated ejection fraction is 65 %. Mild diffuse mitral valve thickening. Equivocal mitral valve prolapse. Mild (1+) mitral valve insufficiency. Trivial tricuspid valve insufficiency. Trivial pulmonic valve insufficiency. Right ventricular systolic pressure estimated to be 26 mmHg. No evidence for diastolic dysfunction. Ordering Physician: Raul Chris Referring Physician: ZAMZAM DANIELS Performed By: Meg Fisher, CHRISTIANNE
--- NOTE | 2022-04-09 09:10 | STRESSREP ---
Stress Test Report Date: 04-09-2022 Procedure: Exercise tolerance test/imaging study Indications: Chest pain; family history of premature cardiovascular disease Consent: Per the patient Procedure: The patient exercised on a Richard protocol for 9 minutes completing Stage III achieving a peak heart rate of 144 bpm (84% predicted maximal heart rate) with a peak blood pressure 150/72 mmHg and a peak MET capacity of 10 METs. The baseline ECG demonstrated normal sinus rhythm. The peak exercise ECG demonstrated no obvious ECG change. There was an isolated ventricular couplet during exercise. The functional capacity was considered good. There was no complaint of chest discomfort during exercise or recovery. The examination was discontinued secondary to dyspnea. Impression: 1. Technically adequate (percent predicted maximal heart rate greater than 85%) exercise tolerance test 2. Peak exercise ECG with no obvious ECG changes 3. There was an isolated ventricular couplet during exercise 4. Nuclear images pending Myocardial perfusion imaging study: Technique: The patient was injected with 12.0 mCi of technetium 99m Cardiolite and subsequently rest SPECT Cardiolite nuclear imaging was obtained in the horizontal long, vertical long, and short axis views. The patient exercised on a Richard protocol for 9 minutes completing Stage III achieving a peak heart rate of 144 bpm (84% predicted maximal heart rate) with a peak blood pressure 150/72 mmHg and a peak MET capacity of 10 METs. The patient was injected with 35.7 mCi of technetium 99m Cardiolite and subsequently stress SPECT Cardiolite nuclear imaging was obtained in the horizontal long, vertical long, and short axis views. A gated Cardiolite study at peak stress was obtained. Interpretation: Rest and stress SPECT Cardiolite nuclear imaging status post realignment, normalization, and attenuation correction, demonstrates the appearance of relative uniform tracer uptake and myocardial perfusion appearing within normal limits. There is end systolic thickening and brightening. The gated Cardiolite study demonstrates myocardial thickening and inward wall motion. The reported LVEF is 78%. Impression: 1. Rest and stress SPECT Cardiolite nuclear imaging demonstrate relative uniform tracer uptake and myocardial perfusion appearing within normal limits. 2. The gated Cardiolite study reports an LVEF of 78%. This note was generated with [employer] software. It may contain incorrect words, spelling, and punctuation that were not noted in checking the note before signing.
== END | disposition home or self-care (01) ==
LOC: CVS 06:26
PROVIDERS: PCP Family Medicine; Referring Provider Internal Medicine Cardiovascular Disease; Visit Provider Internal Medicine Cardiovascular Disease
DX: R07.89 Other chest pain (principal); E78.2 Mixed hyperlipidemia; Z82.49 Family history of ischemic heart disease and other diseases of the circulatory system
CPT/HCPCS: 78452; 93017; 93306; A9500

== ENCOUNTER → 2022-09-17 | Outpatient (CLI) | payer BC, SELFPAY ==
--- NOTE | 2022-09-17 12:48 | BI_ITS ---
MAMMOGRAPHY - BILATERAL SCREENING 3-D TOMOSYNTHESIS REASON FOR EXAM: Female, 52 years old. Routine screening PERTINENT HISTORY: No significant family history. TECHNIQUE: 2-D mammograms and 3-D Tomosynthesis of the breast (s) were performed. CAD was performed. COMPARISON: 08/19/2020 FINDINGS: The breast composition is composed of scattered fibroglandular density. Scattered benign calcifications are seen. No dense spiculated masses or suspicious microcalcifications are identified. No architectural distortion is identified. There is no skin thickening or retraction. There has been no significant change since the prior study. BI/SCRN MAMM (CAD)W/ALFRED BILAT IMPRESSION: No mammographic signs of malignancy. Routine yearly mammograms recommended. ASSESSMENT CATEGORY: BIRADS Category 1: Negative. A letter regarding these results will be sent to the patient by the facility within 30 days. FOLLOW UP RECOMMENDATION: Yearly follow up mammogram recommended. (A) Approximately 10% of breast cancers are not detected by mammography. A normal mammogram should not delay biopsy of a clinically suspicious abnormality. Electronically Signed: Naun Burr MD at 13:22 EDT ,
== END | disposition home or self-care (01) ==
LOC: OPBI 12:46
PROVIDERS: PCP Family Medicine; Referring Provider Obstetrics & Gynecology; Visit Provider Obstetrics & Gynecology
DX: Z12.31 Encounter for screening mammogram for malignant neoplasm of breast (principal)
CPT/HCPCS: 77063; 77067

== ENCOUNTER → 2023-08-31 | Outpatient (CLI) | payer BC, SELFPAY ==
--- NOTE | 2023-08-31 14:02 | ECHOD_ITS ---
Reason For Study: HYPERLIPIDEMIA Procedure This was a 2D Doppler, Color Flow transthoracic echocardiogram. Exam performed in department. Left Ventricle Normal size and thickness. The left ventricular ejection fraction is 65 %. Normal diastololic function. Right Ventricle Normal right ventricle. Atria The left and right atria are normal. Mitral Valve Trivial mitral valve insufficiency. Tricuspid Valve Trivial tricuspid valve insufficiency. Normal pulmonary artery pressure. Aortic Valve Trisinus/trileaflet aortic valve. Mild (1+) aortic valve insufficiency. Pulmonic Valve The pulmonic valve is not well visualized. Trivial pulmonic valve insufficiency. Great Vessels Mildly dilated aortic root. Pericardium/Pleural No pericardial effusion. MMode/2D Measurements & Calculations LVIDd: 4.4 cm IVSd: 0.98 cm Ao root diam: 3.5 cm LVIDs: 3.0 cm LVPWd: 0.99 cm RVDd: 3.0 cm FS: 30.9 % LAV(MOD-bp): 36.4 ml LVAd ap4: 28.4 cm2 LVAd ap2: 28.8 cm2 LAV(MOD-bp) Indexed: 19.5 ml/m2 LVLd ap4: 7.9 cm LVLd ap2: 8.2 cm LAV(MOD-sp2): 35.5 ml EDV(MOD-sp4): 85.3 ml EDV(MOD-sp2): 85.1 ml LAV(MOD-sp4): 35.5 ml EDV(sp4-el): 87.4 ml EDV(sp2-el): 85.3 ml LVAs ap4: 13.5 cm2 LVAs ap2: 15.7 cm2 LVLs ap4: 6.1 cm LVLs ap2: 7.2 cm ESV(MOD-sp4): 26.1 ml ESV(MOD-sp2): 29.4 ml ESV(sp4-el): 25.2 ml ESV(sp2-el): 28.8 ml EF(MOD-sp4): 69.3 % EF(MOD-sp2): 65.4 % EF(sp4-el): 71.1 % SV(MOD-sp4): 59.1 ml SV(MOD-sp2): 55.7 ml SV(sp4-el): 62.1 ml LA dimension(2D): 3.5 cm LA A4 area: 14.3 cm2 RA A4 area: 7.8 cm2 TAPSE: 2.3 cm Time Measurements MV dec time: 0.17 sec Doppler Measurements & Calculations MV E max alvino: 80.5 cm/sec Lat Peak E' Alvino: 13.1 cm/sec Med Peak E' Alvino: 10.0 cm/sec MV A max alvino: 68.4 cm/sec E/E' lat: 6.1 E/E' med: 8.1 MV E/A: 1.2 MV V2 max: 97.9 cm/sec MV dec slope: 494.9 cm/sec2 Ao V2 max: 133.4 cm/sec MV max P.8 mmHg Ao max P.1 mmHg MV V2 mean: 63.5 cm/sec Ao V2 mean: 92.1 cm/sec MV mean P.8 mmHg Ao mean P.9 mmHg MV V2 VTI: 23.5 cm Ao V2 VTI: 28.9 cm AV (velocity ratio): 0.74 LV V1 max: 102.6 cm/sec PA V2 max: 109.7 cm/sec TR max alvino: 269.9 cm/sec LV V1 max P.2 mmHg PA V2 mean: 72.4 cm/sec TR max P.1 mmHg LV V1 mean P.1 mmHg LV V1 mean: 67.1 cm/sec LV V1 VTI: 21.5 cm ECHO/Echo Complete Interpretation Summary The left ventricular ejection fraction is 65 %. Mild (1+) aortic valve insufficiency. Mildly dilated aortic root. Ordering Physician: Irineo Ortiz Referring Physician: Lee Muro Performed By: Xochitl Montes De Oca, CHRISTIANNE, RVT
== END | disposition home or self-care (01) ==
PROVIDERS: PCP Family Medicine; Visit Provider Internal Medicine Cardiovascular Disease
DX: E78.5 Hyperlipidemia, unspecified (principal); I34.0 Nonrheumatic mitral (valve) insufficiency; R07.89 Other chest pain; Z82.49 Family history of ischemic heart disease and other diseases of the circulatory system
CPT/HCPCS: 93306

== ENCOUNTER → 2024-09-11 | Outpatient (CLI) | payer BC, SELFPAY ==
--- NOTE | 2024-09-11 10:01 | ECHOD_ITS ---
Reason For Study: AORTIC INSUFFICIENCY Procedure This was a 2D Doppler, Color Flow transthoracic echocardiogram. Exam performed in department. Left Ventricle Normal size and thickness. The left ventricular ejection fraction is 65 %. Normal diastololic function. Right Ventricle Normal right ventricle. Atria The left and right atria are normal. Mitral Valve Trivial mitral valve insufficiency. Tricuspid Valve Trivial tricuspid valve insufficiency. Normal pulmonary artery pressure. Aortic Valve Trisinus/trileaflet aortic valve. Mild (1+) aortic valve insufficiency. Pulmonic Valve The pulmonic valve is not well visualized. Great Vessels Normal sized aortic root. Pericardium/Pleural No pericardial effusion. MMode/2D Measurements & Calculations LVIDd: 4.2 cm IVSd: 0.93 cm LVOT diam: 1.9 cm LVIDs: 2.3 cm LVPWd: 0.75 cm LVOT area: 2.7 cm2 RVDd: 2.7 cm FS: 46.1 % asc Aorta Diam: 3.5 cm LAV(MOD-bp): 35.3 ml LVAd ap4: 19.5 cm2 LAV(MOD-bp) Indexed: 19.3 ml/m2 LVLd ap4: 6.8 cm LAV(MOD-sp2): 32.1 ml EDV(MOD-sp4): 46.3 ml LAV(MOD-sp4): 35.3 ml EDV(sp4-el): 47.7 ml LVAs ap4: 10.5 cm2 LVLs ap4: 5.6 cm ESV(MOD-sp4): 16.4 ml ESV(sp4-el): 16.5 ml EF(MOD-sp4): 64.6 % EF(sp4-el): 65.4 % LVAd ap2: 23.7 cm2 SV(MOD-sp4): 29.9 ml SV(MOD-sp2): 40.8 ml LVLd ap2: 7.5 cm EDV(MOD-sp2): 62.5 ml EDV(sp2-el): 63.8 ml LVAs ap2: 11.9 cm2 LVLs ap2: 5.8 cm ESV(MOD-sp2): 21.7 ml ESV(sp2-el): 21.0 ml EF(MOD-sp2): 65.3 % SV(sp4-el): 31.2 ml Ao sinus diam: 3.[address] Junction: 2.8 cm LA dimension(2D): 3.1 cm LA A4 area: 15.0 cm2 RA A4 area: 9.9 cm2 TAPSE: 1.9 cm Time Measurements MV dec time: 0.19 sec Doppler Measurements & Calculations MV E max alvino: 74.8 cm/sec Lat Peak E' Alvino: 11.9 cm/sec Med Peak E' Alvino: 7.6 cm/sec MV A max alvino: 65.5 cm/sec E/E' lat: 6.3 E/E' med: 9.8 MV E/A: 1.1 MV dec slope: 389.9 cm/sec2 Ao V2 max: 135.2 cm/sec AI max alvino: 368.1 cm/sec Ao max P.3 mmHg AI max P.2 mmHg Ao V2 mean: 87.4 cm/sec AI dec slope: 112.5 cm/sec2 Ao mean P.5 mmHg AI P1/2t: 958.7 msec Ao V2 VTI: 29.9 cm AV (velocity ratio): 0.80 BOZENA(I,D): 2.2 cm2 BOZENA(V,D): 2.0 cm2 LV V1 max: 100.3 cm/sec SV(LVOT): 65.1 ml PA V2 max: 79.9 cm/sec LV V1 max P.0 mmHg PA max PG (full): 0.78 mmHg LV V1 mean P.2 mmHg LV V1 mean: 71.2 cm/sec LV V1 VTI: 24.0 cm TR max alvino: 209.8 cm/sec TR max P.6 mmHg ECHO/Echo Complete Interpretation Summary The left ventricular ejection fraction is 65 %. Mild (1+) aortic valve insufficiency. Ordering Physician: Irineo Ortiz Referring Physician: Lee Muro Performed By: Thais Mcnair RDCS
== END | disposition home or self-care (01) ==
PROVIDERS: PCP Family Medicine; Referring Provider Internal Medicine Cardiovascular Disease; Visit Provider Internal Medicine Cardiovascular Disease
DX: I35.1 Nonrheumatic aortic (valve) insufficiency (principal); R07.89 Other chest pain; E78.5 Hyperlipidemia, unspecified; I34.0 Nonrheumatic mitral (valve) insufficiency; Z82.49 Family history of ischemic heart disease and other diseases of the circulatory system
CPT/HCPCS: 93306

== ENCOUNTER → 2025-09-25 | Outpatient (CLI) | payer BC, SELFPAY ==
--- NOTE | 2025-09-25 08:02 | ECHOCS_ITS ---
Reason For Study ECHO/Echo Complete W/ Contrast
== END | disposition home or self-care (01) ==
PROVIDERS: PCP Family Medicine; Referring Provider Internal Medicine Cardiovascular Disease; Visit Provider Internal Medicine Cardiovascular Disease
DX: R03.0 Elevated blood-pressure reading, without diagnosis of hypertension (principal); R07.89 Other chest pain; I35.1 Nonrheumatic aortic (valve) insufficiency
CPT/HCPCS: 93306; Q9957; A4216; C8929